=== PATIENT | male | born 2000 | race Caucasian/White ===

== ENCOUNTER 2020-02-05 20:16 | Emergency (ER) | payer OTHER ==
[2020-02-05 20:25] VITALS: BP 132/84; PULSE 94; TEMP 99; BMI 24.4
[2020-02-05] MEDS ORDERED: SODIUM CHLORIDE 1,000 ML IV STA (20:26)
[2020-02-05] MEDS ORDERED: ONDANSETRON 4 MG/2 ML VIAL IVPUSH ONE (20:26)
--- NOTE | 2020-02-05 20:26 | PDOC ---
Rapid Medical Evaluation Time Seen by Provider: 02/05/20 20:24 Medical Evaluation: 02/05/20 20:24 Pt presents to the ER for 4 days of abdominal pain after eating Pashto food. States he vomited once. Denies fevers, diarrhea. Exam: TTP of the epigastric region Orders: labs, IVF Pt to proceed to the ER for further evaluation Discharge Disposition - Diagnosis Abdominal pain - Referrals - Patient Instructions - Post Discharge Activity
[2020-02-05] MEDS ORDERED: MAG HYDROX/AL HYDROX/SIMETH 30 ML UNIT-DOSE CUP PO ONE (20:36)
[2020-02-05] MEDS ORDERED: ACETAMINOPHEN 500 MG TABLET (FP) PO ONE ×2 (20:36→21:14)
[2020-02-05] MEDS ORDERED: MAG HYDROX/AL HYDROX/SIMETH 30 ML UNIT-DOSE CUP ONE (20:37)
[2020-02-05] MEDS ORDERED: ACETAMINOPHEN 500 MG TABLET (FP) ONE (20:37)
--- NOTE | 2020-02-05 20:44 | PDOC ---
History of Present Illness - General Chief Complaint: Pain Stated Complaint: ABD PAIN Time Seen by Provider: 02/05/20 20:24 History Source: Patient - History of Present Illness Timing/Duration: reports: intermittent Quality: reports: moderate Abdominal Pain Onset Location: reports: epigastric Pain Radiation: reports: no radiation Past History - Medical History Allergies/Adverse Reactions: Allergies Allergy/AdvReac Type Severity Reaction Status Date / Time No Known Allergies Allergy Verified 02/05/20 20:26 Home Medications: Ambulatory Orders Acetaminophen [Tylenol -] 1,000 mg PO Q6H #30 tablet 02/05/20 Famotidine [Pepcid] 20 mg PO BID #28 tablet 02/05/20 Mag Hydrox/Al Hydrox/Simeth [Mylanta Suspension -] 30 ml PO Q6H #1 bottle 02/05/20 - Psycho-Social/Smoking History Smoking History: Never smoked Have you smoked in the past 12 months: No Information on smoking cessation initiated: No - Substance Abuse Hx (Audit-C & DAST Scrn) How often the patient has a drink containing alcohol: Monthly or less Number of drinks the patient has on a typical day: 1 or 2 Score: In Men: 4 or > Positive; In Women: 3 or > Positive: 1 Screen Result (Pos requires Nsg. Audit-10AR): Negative In the last yr the pt used illegal drug/Rx for NonMed reason: No Score: Yes response is considered Positive: 0 Screen Result (Positive result requires Nsg. DAST-10): Negative Review of Systems - Review of Systems Constitutional: No: Chills, Fever Respiratory: No: Cough, Shortness of Breath Cardiac (ROS): No: Chest Pain ABD/GI: Yes: Nausea, Vomiting. No: Blood Streaked Bowels, Constipated, Diarrhea, Rectal Bleeding, Tarry Stools : No: Dysuria *Physical Exam - Vital Signs Last Vital Signs Temp Pulse Resp BP Pulse Ox 99 F 94 H 20 132/84 97 02/05/20 20:21 02/05/20 20:21 02/05/20 20:21 02/05/20 20:21 02/05/20 20:21 - Physical Exam General Appearance: Yes: Appropriately Dressed. No: Apparent Distress HEENT: positive: Normal Voice Neck: positive: Supple Respiratory/Chest: positive: Lungs Clear, Normal Breath Sounds. negative: Respiratory Distress Cardiovascular: positive: Regular Rate, S1, S2 Gastrointestinal/Abdominal: positive: Tender (minimal ttp to mepigastrium), Soft. negative: Distended, Guarding, Rebound Musculoskeletal: negative: CVA Tenderness Integumentary: positive: Dry, Warm Neurologic: positive: Fully Oriented, Alert, Normal Mood/Affect Medical Decision Making - Medical Decision Making 02/05/20 20:37 19 yo male, denies any pmhx, here w/ epigastric discomfort x 4 days, on and off, worse w/ food and when supine at night. Had 1 e/o n/v. No change in BM, melena, BRBPR, f/c. Took tylenol and tums at home w/ some relief per pt. Sxs started shortly after eating sesame chicken from [employer]. No h/o similar condition. No frequent NSAID or ETOH use see exam M/l gastritis, no RUQ ttp to suggest biliary source, no obvious RF for pancreatitis, no lower abd ttp to suggest appy and unlikely renal colic/UTI Stable and well gely w/ minimal ttp to epigastrium Dose of tylenol/maalox in ED Stable for dc w/ trial of GI cocktail and diet modification To return for persistent/worsening sxs Discharge - Discharge Information Problems reviewed: Yes Clinical Impression/Diagnosis: Epigastric abdominal pain Condition: Good Disposition: HOME - Additional Discharge Information Prescriptions: Mag Hydrox/Al Hydrox/Simeth [Mylanta Suspension -] 30 ml PO Q6H #1 bottle Famotidine [Pepcid] 20 mg PO BID #28 tablet Acetaminophen [Tylenol -] 1,000 mg PO Q6H #30 tablet - Follow up/Referral - Patient Discharge Instructions Patient Printed Discharge Instructions: Gastritis Additional Instructions: Es posible que tenga luiz afeccin llamada gastritis, que es bsicamente irritacin / inflamacin del estmago y puede ser causada por comer alimentos picantes / picantes, alcohol excesivo o luis demasiados medicamentos praveena motrin, aleve y advil [place] los medicamentos segn las indicaciones. Si los sntomas persisten o empeoran, regrese a la sam de emergencias Print Language: YI - Post Discharge Activity
== END 2020-02-05 21:26 | disposition home or self-care (01) ==
LOC: EDBD 20:16 → JER 20:16
PROC: 3E033NZ Introduction of Analgesics, Hypnotics, Sedatives into Peripheral Vein, Percutaneous Approach (ICD-10-PCS; principal; 2020-02-05)
PROC: 3E0337Z Introduction of Electrolytic and Water Balance Substance into Peripheral Vein, Percutaneous Approach (ICD-10-PCS; 2020-02-05)
DX: R10.13 Epigastric pain (principal)
CPT/HCPCS: 96361; 96374; 99284-25

== ENCOUNTER 2020-09-21 15:56 | Emergency (ER) | payer OTHER ==
[2020-09-21 16:09] VITALS: BP 116/77; PULSE 65; TEMP 97.9; BMI 28.5
[2020-09-21 18:07] LABS: BASO % 0.5 % (0-2.0); EOS % 3.2 % (0-4.5); HEMATOCRIT 45.2 % (35.4-49); HEMOGLOBIN 15.3 GM/dL (11.7-16.9); LYMPH % 39.1 % (8-40); MCH 29.7 pg (25.7-33.7); MCHC 33.7 g/dl (32.0-35.9); MEAN CELL VOLUME 88.2 fl (80-96); MEAN PLT VOLUME 8.5 fl (7.5-11.1); MONO % 9.3 % (3.8-10.2); NEUT % 47.9 % (42.8-82.8); PLATELET COUNT 270 K/MM3 (134-434); RBC 5.13 M/mm3 (4.00-5.60); RDW 12.8 % (11.9-15.9); WHITE BLOOD COUNT 6.2 K/mm3 (4.0-10.0)
[2020-09-21 18:18] LABS: INR 1.01 (0.83-1.09); PROTHROMBIN TIME (PATIENT) 12.4 SEC (9.7-13.0)
[2020-09-21 18:28] LABS: CHLORIDE 106 mmol/L (98-107); POTASSIUM 4.4 mmol/L (3.5-5.1); SODIUM 141 mmol/L (136-145)
[2020-09-21 18:32] LABS: BLOOD UREA NITROGEN 12.8 mg/dL (7-18); CALCIUM 9.9 mg/dL (8.5-10.1)
[2020-09-21 18:33] LABS: ALBUMIN 4.4 g/dl (3.4-5.0); ANION GAP 5 MMOL/L (8-16); CO2 30 mmol/L (21-32); GLUCOSE,RANDOM 83 mg/dL (74-106)
[2020-09-21 18:36] LABS: SGOT/AST 18 U/L (15-37); SGPT/ALT 29 U/L (13-61)
[2020-09-21 18:37] LABS: BILIRUBIN,TOTAL 0.5 mg/dL (0.2-1); TOT PROT 8.7 g/dl (6.4-8.2)
[2020-09-21 18:39] LABS: ALK PHOS 74 U/L (45-117)
== END 2020-09-21 19:16 | disposition home or self-care (01) ==
LOC: JERFT 15:56
DX: R07.9 Chest pain, unspecified (principal)
CPT/HCPCS: 36415; 71046-TC-FY; 80053; 82550; 82553; 84484; 85025; 85610; 93005; 93010; 99285-25; C9803; U0003

== ENCOUNTER 2024-06-17 15:55 | Emergency (ER) | payer OTHER ==
[2024-06-17 16:02] VITALS: BP 134/79; PULSE 91; RESP 18; TEMP 100.2; BMI 25.6
[2024-06-17 16:58] LABS: PH,URINE 5.5 (5.0-8.0); URINE APPEARANCE CLEAR; URINE BILIRUBIN NEGATIVE (NEGATIVE); URINE COLOR YELLOW; URINE GLUCOSE (UA) NEGATIVE (NEGATIVE); URINE KETONE TRACE (NEGATIVE); URINE LEUK ESTERASE NEGATIVE (NEGATIVE); URINE NITRITE NEGATIVE (NEGATIVE); URINE PROTEIN TRACE (NEGATIVE)
== END 2024-06-17 17:16 | disposition home or self-care (01) ==
LOC: JER 15:55
DX: R50.9 Fever, unspecified (principal); J02.9 Acute pharyngitis, unspecified; R09.81 Nasal congestion; M54.50 Low back pain, unspecified; R35.0 Frequency of micturition; B34.9 Viral infection, unspecified
CPT/HCPCS: 81003; 87086; 99283-25